=== PATIENT | female | born 1960 | race Caucasian/White ===

== ENCOUNTER 2016-06-29 09:59 | Day surgery (SDC) | payer OTHER ==
[~2016-06-29] VITALS: Ht 160 cm; Wt 65.6 kg
[2016-06-29] VITALS (9 sets, daily range): BP systolic 107–127; BP diastolic 54–70; PULSE 74–105; RESP 15–20; Ht 160 cm; Wt 65.6 kg
[~2016-06-29 09:59] MED LIST: EPHEDrine SULFATE 50 MG/5 ML SYG ONE; PARO40TA48 PO
[2016-06-29 11:09] LABS: POTASSIUM 3.8 mmol/L (3.5-5.1)
[2016-06-29 11:15] LABS: CALCIUM 9.1 mg/dl (8.4-10.2); CREATININE 0.71 mg/dl (0.44-1.00)
[2016-06-29 11:17] LABS: PROTIME 13.2 Sec (12.2-14.2)
[2016-06-29 11:18] LABS: PARTIAL THROMBOPLASTIN TIME 28.5 Sec (25.0-35.0)
[2016-06-29] MEDS ORDERED: SIMV40TA7 PO (11:24)
[2016-06-29 11:32] LABS: BASOPHILS % 0.5 % (0.0-2.0); EOSINOPHILS % 0.6 % (0.0-7.0); HEMATOCRIT 40.7 % (37.0-47.0); HEMOGLOBIN 14.2 g/dl (12.0-16.0); LYMPHOCYTES # 1.9 10^3/ul (0.8-2.9); LYMPHOCYTES % 35.4 % (15.0-51.0); MEAN CORPUSCULAR HEMOGLOBIN 32.8 pg (29.0-33.0); MEAN CORPUSCULAR VOLUME 93.6 fl (82.0-101.0); MEAN PLATELET VOLUME 8.7 fl (7.4-10.4); MONOCYTE # 0.4 10^3/ul (0.3-0.9); MONOCYTES % 7.4 % (0.0-11.0); NEUTROPHIL # 3.1 10^3/ul (1.6-7.5); NEUTROPHILS % 56.1 % (39.0-77.0); PLATELET COUNT 283 10^3/UL (140-440); RED BLOOD COUNT 4.34 10^6/ul (4.20-5.40); RED CELL DISTRIBUTION WIDTH 12.8 % (11.5-14.5); UNCORRECTED WBC 5.5 10^3/ul (4.8-10.8); WHITE BLOOD COUNT 5.5 10^3/ul (4.8-10.8)
[2016-06-29 11:37] LABS: CONDITION 1
[2016-06-29] MEDS ORDERED: CEFAZOLIN 2 GM/50 ML (PMX) 50 ML IVPB ONE (12:00)
[2016-06-29] MEDS ORDERED: SOD CHLORIDE 0.9% 1,000 ML IV ONE (12:00)
[2016-06-29] MEDS ORDERED: PROPOFOL 20 ML ONE (12:30)
[2016-06-29] MEDS ORDERED: MIDAZOLAM 1 MG/ML 2 ML INJ ONE (12:30)
[2016-06-29] MEDS ORDERED: FENTAnyl 50 MCG/ML VIAL ONE (12:31)
[2016-06-29] MEDS ORDERED: CEFAZOLIN 1 GM INJ ONE (12:53)
[2016-06-29] MEDS ORDERED: PHENYLephrine (100 MCG/ML) 5ML SYG ONE (12:57)
[2016-06-29] MEDS ORDERED: DEXAMETHASONE 4 MG/ML 1 ML INJ ONE (12:58)
[2016-06-29] MEDS ORDERED: ONDANSETRON 4 MG INJ ONE (12:58)
--- NOTE | 2016-06-29 13:40 | OPR ---
DATE OF OPERATION: 06/29/2016 PREOPERATIVE DIAGNOSIS: Ductal carcinoma in situ, left breast, need for left reexcision partial mas tectomy. POSTOPERATIVE DIAGNOSIS: Ductal carcinoma in situ, left breast, need for left reexcision partial ma stectomy. OPERATION PERFORMED: Left reexcision partial mastectomy. ANESTHESIA: General. ANESTHESIOLOGIST: Dr. Merchant SURGEON: Perez Garcia MD [employer] PERSON: Dr. Villa INDICATIONS FOR PROCEDURE: The patient is a 55-year-old female who underwent surveillance mammograp hy and subsequent core biopsy and was found to have ductal carcinoma in situ in the left breast. Mccallum bsequent excisional biopsy revealed a significant amount of ductal carcinoma and inadequate margins. She was counseled as to need for reexcision partial mastectomy. She consented and was scheduled f or surgery. DESCRIPTION OF PROCEDURE: The patient was brought to the operating theater, placed under general an esthesia. The left breast was prepped and draped in usual sterile fashion. The previous surgical i ncisional scar was in the upper outer quadrant of the breast, somewhat lateral. The decision was ma de to resect the previous surgical incisional scar. An elliptical incision was made around it with 15 blade scalpel. Subcutaneous tissue was dissected with cautery. The skin edges were then elevate d with skin hooks and wide circumferential dissection of the previous biopsy cavity then took place. Specimen was elevated, transected, oriented, and sent for permanent pathologic analysis. The woun d was irrigated. Minimal bleeding was controlled with cautery. The skin was then reapproximated wi th a deep dermal layer of 4-0 Vicryl sutures in interrupted fashion, followed by final skin closure with 5-0 PDS in subcuticular fashion. Benzoin and Steri-Strips were then applied. The patient tole rated procedure well. Estimated blood loss was 20 mL. There were no complications and the patient was transported in stable condition to the recovery room. Dictated By: PEREZ PETERSON/JANAY Conf#: [id number] DID#: [id number]
[2016-06-29] MEDS ORDERED: HYDROmorphONE (0.2 MG/ML) 10ML SYG IV PRN (14:00)
[2016-06-29] MEDS ORDERED: ONDANSETRON 4 MG INJ IV PRN (14:00)
[2016-06-29] MEDS: HYDROmorphONE (0.2 MG/ML) 10ML SYG IV PRN ×3 (14:15→14:33)
== END 2016-06-29 16:15 | disposition home or self-care (01) ==
LOC: SDS 09:59
PROVIDERS: ATTEND Surgery Surgical Oncology
DX: D05.12 Intraductal carcinoma in situ of left breast (principal); F41.8 Other specified anxiety disorders
CPT/HCPCS: 19301; 80048; 85025; 85610; 85730; 88307; J0690; J1100; J1170; J2250; J2370; J2405; J3010; Z7512; Z7610

== ENCOUNTER 2016-11-16 10:09 | Day surgery (SDC) | END 2016-11-16 17:20 | disposition home or self-care (01) | DX: D05.12 Intraductal carcinoma in situ of left breast (principal); E78.5 Hyperlipidemia, unspecified; E66.9 Obesity, unspecified; Z68.25 Body mass index [BMI] 25.0-25.9, adult | CPT/HCPCS: 19301; 71010; 80053; 85025; 85610; 85730; 88307; 93005; J0690; J1170; J2175; J2250; J2710; J3010; J7999; Z7512; Z7610 ==

== ENCOUNTER 2017-07-03 05:43 | Inpatient (IN) | END 2017-07-04 12:20 | disposition home or self-care (01) | DRG 581 ==

== ENCOUNTER 2018-08-05 10:05 | Day surgery (SDC) | payer OTHER ==
[~2018-08-05] VITALS: Ht 160 cm; Wt 65.0 kg
[~2018-08-05 10:05] MED LIST changes: -EPHEDrine SULFATE 50 MG/5 ML SYG ONE; +OMEP20CA16 PO; -PARO40TA48 PO; +PARO40TA63 PO; +SIMV40TA7 PO
[2018-08-05 11:12] VITALS: Ht 160 cm; Wt 65.0 kg
[2018-08-05] MEDS ORDERED: ATOR40TA68 PO (11:13)
[2018-08-05] MEDS ORDERED: LIDOCAINE 4% SOLUTION 50 ML BTL ONE (11:40)
[2018-08-05 11:54] VITALS: BP 148/70; RESP 15
[2018-08-05 11:55] VITALS: PULSE 78
[2018-08-05] MEDS ORDERED: FENTAnyl 50 MCG/ML VIAL ONE (12:38)
[2018-08-05] MEDS ORDERED: MIDAZOLAM 1 MG/ML 2 ML INJ ONE ×2 (12:38→12:39)
[2018-08-05 13:01] VITALS: BP 147/70; RESP 13
== END 2018-08-05 15:31 | disposition home or self-care (01) ==
LOC: GIL 10:05
PROVIDERS: ATTEND Internal Medicine Gastroenterology
DX: K29.60 Other gastritis without bleeding (principal); K31.84 Gastroparesis
CPT/HCPCS: 43239; 88305; 88312; 88313; J2250; J3010; Z7610